=== PATIENT | female | born 1975 | race Hispanic/Latino ===

== ENCOUNTER 2017-08-18 14:08 | Emergency (ER) | payer BC ==
[~2017-08-18] VITALS: Ht 182.9 cm; Wt 117.0 kg
--- NOTE | 2017-08-18 16:49 | Diagnostic Imaging Report ---
EXAMINATION: SHOULDER RIGHT COMPLETE 08/18/2017 2:11 PM COMPARISON: None INDICATION: Right shoulder pain DISCUSSION: 2 views of the right shoulder (AP internal and external rotation) No fracture or dislocation. Internal and external rotation are adequate Joint spaces are maintained. Soft tissues are unremarkable IMPRESSION: No acute radiographic abnormality of the the right shoulder George Paulino MD Signed by: Dr. George Paulino M.D. on 08/18/2017 4:45 PM
--- NOTE | 2017-08-18 16:56 | Diagnostic Imaging Report ---
EXAMINATION: CERVICAL SPINE 4 OR 5 VIEWS 08/18/2017 2:47 PM COMPARISON: None INDICATION: Fall DISCUSSION: 7 views of the cervical spine (AP, lateral, bilateral obliques, 2 odontoid views, and swimmer's view). Cervical spine is visualized to the bottom of C6 on the lateral view with limited visualization of the top of C7 on the swimmer's view. No fracture or malalignment of the cervical spine. The prevertebral soft tissues are not thickened. IMPRESSION: No acute radiographic abnormality of the cervical spine George Paulino MD Signed by: Dr. George Paulino M.D. on 08/18/2017 4:53 PM
== END 2017-08-18 17:32 | disposition home or self-care (01) ==
LOC: ER 14:08
DX: M54.2 Cervicalgia (principal); S16.1XXA Strain of muscle, fascia and tendon at neck level, initial encounter; M25.511 Pain in right shoulder; I10 Essential (primary) hypertension
CPT/HCPCS: 72050; 99284